=== PATIENT | female | born 1965 | race Caucasian/White ===

== ENCOUNTER → 2016-04-22 | Outpatient (CLI) | payer OTHER ==
--- NOTE | 2016-04-22 13:17 | MA ---
Screening Digital Mammogram With Tomosynthesis Clinical Indications: Routine screening. Technique: Standard digital cephalocaudal and tomosynthesis mediolateral oblique projections were ob tained. The digital images were processed by the Share[employer] computer aided detection system. Comparison: May 2014, March 2013 and January 2012 , February 2010. Breast density: D; The breast tissue is extremely dense. This may lower the sensitivity of mammograph y. Findings: CAD was reviewed. There is a new small irregular asymmetry, deep in the outer right breast , in the retromammary fat. This is equivocally in the upper right breast on the oblique lateral view The remainder of the right and left breast are stable Impression: New density in the retromammary fat of the outer right breast. Recommendation: Spot compression view in the CC projection, off midline CC views by 5 degrees and a true lateral view. If persistent, attempt to localize in the orthogonal plane mammographically, and t hen proceed to ultrasound for further localization and characterization purposes.. BI-RADS 0: Needs additional imaging evaluation, right breast. [facility] will send a result letter to the patient. Negative mammography should not preclude additional workup of a clinically suspicious finding. The patient's information is entered into a reminder system with a target due date for her next mammo gram.
== END ==
LOC: FIMAGING 11:41
DX: Z12.31 Encounter for screening mammogram for malignant neoplasm of breast (principal)
CPT/HCPCS: G0202

== ENCOUNTER → 2016-05-05 | Outpatient (CLI) | payer OTHER ==
--- NOTE | 2016-05-05 14:16 | MA ---
Diagnostic Digital Mammogram Right Breast With iCAD Analysis Reason for examination: Evaluate possible asymmetry in the retromammary fat noted on the craniocaudal view from the screening study April 22, 2016. Technique: Craniocaudal spot compression as well as rolled medial and rolled lateral craniocaudal vie ws of the right breast are obtained. Also, a true lateral is performed. The examination is processed by the iCAD computer-aided detection system. Findings: The abnormality does not persist on diagnostic evaluation and it was probably related to bell perimposition of normal glandular elements on the screening study. Impression: Negative diagnostic mammography. BI-RADS: 1. Recommendation: Resume routine mammographic screening in one year as long as physical examination is negative. A verbal report was given to the patient. [facility] with send a result letter.
== END ==
LOC: FIMAGING 13:31
PROVIDERS: ATTEND Family Medicine
DX: Z03.89 Encounter for observation for other suspected diseases and conditions ruled out (principal)
CPT/HCPCS: G0206

== ENCOUNTER → 2017-05-19 | Outpatient (CLI) | payer OTHER | LOC: FIMAGING 10:04 | PROVIDERS: ATTEND Family Medicine | DX: Z12.31 Encounter for screening mammogram for malignant neoplasm of breast (principal) ==

== ENCOUNTER → 2018-09-01 | Outpatient (CLI) | payer OTHER | LOC: CIMAGING 09:40 ==